=== PATIENT | male | born 1975 | race Caucasian/White ===

== ENCOUNTER 2023-11-02 02:10 | Emergency (ER) | payer SELFPAY ==
[2023-11-02 02:14] VITALS: TEMP 36.4
--- NOTE | 2023-11-02 02:15 | PC.NURSE ---
patient told staff to get the fuck out of his room. he does not want any help. he is leaving. patient refusing care at this time. patient denies suicidal ideation
--- NOTE | 2023-11-02 02:19 | PC.NURSE ---
Dr Lopez, this RN and Barb RN at the bedside. patient states i am not talking to you, I am not talking to you (Dr Givens) and I am not talking to you (Barb MANRIQUEZ). Patient states call the upper lining cementer, put me in handcuffs and take me to [facility]. call the upper lining cementer
--- NOTE | 2023-11-02 02:21 | PC.NURSE ---
[place] [employer] and [place] [employer] have arrived and is walking patient out of the department.
== END 2023-11-02 02:21 | disposition left against medical advice (07) ==
LOC: CHSED 11-05 10:37
PROVIDERS: Emergency Provider Emergency Medicine
DX: R45.851 Suicidal ideations (principal)
CPT/HCPCS: 99199